=== PATIENT | female | born 1950 | race Caucasian/White ===

== ENCOUNTER → 2016-08-12 | Outpatient (CLI) | payer MEDICARE, OTHER ==
[~2016-08-12] MED LIST: ALDACTONE 25MG25 MG PO; ASPIR 8181 MG PO; CLARITIN10 MG PO; COMBIVENT0.074 GM/I INH; DITROPAN XL 5 MG5 MG PO; DOXEPIN HCL25 MG PO; FISH OIL 1,0001 EACH PO; GUAIFEN-CODEIN473 ML PO; GUAIFENESIN-CODE5 ML PO; INDERAL TAB 2020 MG PO; LASIX20 MG PO; LEVAQUIN500 MG PO; MIRALAX17 GM PO; NITROSTAT0.4 MG SL; NORFLEX 100 MG100 MG PO; POTASSIUM99 M1 PO; PROBIOTIC1 EAC1 PO; PROTONIX20 MG PO; SIMVASTATIN40 MG PO; SYMBICORT 16010.2 GM INH; VITAMIN D 40400 UNIT PO; VITAMIN D31000 UNIT PO; VITAMIN E1000 UNI1 PO; VOLTAREN 0.1%2.5 ML TOP; VOLTAREN100 GM TOP
[2016-08-12 14:14] LABS: HEMOGLOBIN 13.7 gm/dl (12.3-15.3); RED BLOOD COUNT 4.27 M/UL (4.00-5.10); WHITE BLOOD COUNT 7.1 K/UL (4.5-11.0)
[2016-08-12 14:33] LABS: BUN/CREATININE RATIO 14 (0-10)
== END ==
LOC: LAB 13:16
PROVIDERS: Emergency Medicine
DX: I12.9 Hypertensive chronic kidney disease with stage 1 through stage 4 chronic kidney disease, or unspecified chronic kidney disease (principal); N18.3 Chronic kidney disease, stage 3 (moderate); J20.8 Acute bronchitis due to other specified organisms; E78.2 Mixed hyperlipidemia; Z88.5 Allergy status to narcotic agent; Z88.8 Allergy status to other drugs, medicaments and biological substances; Z91.048 Other nonmedicinal substance allergy status
CPT/HCPCS: 36415; 71020; 80053; 85027

== ENCOUNTER → 2016-10-08 | Outpatient (CLI) | payer MEDICARE, OTHER | LOC: SLEEP 21:30 | DX: G47.33 Obstructive sleep apnea (adult) (pediatric) (principal) | CPT/HCPCS: 95810 ==

== ENCOUNTER → 2020-06-05 | Outpatient (CLI) | payer MEDICARE, OTHER ==
[~2020-06-05] MED LIST changes: +ALDACTONE25 MG PO; +AZELASTIN-FLUTI23 GM; +BREO ELLIPTA 21 EACH INH; +PREMARIN VAG CR30 GM EXT; +PROVENTIL HFA6.7 GM INH; +TIROSINT25 MCG PO; +VENTOLIN/PROVE0.5 ML INH
== END ==
LOC: RAD 12:53
DX: M51.16 Intervertebral disc disorders with radiculopathy, lumbar region (principal); M48.061 Spinal stenosis, lumbar region without neurogenic claudication; M25.78 Osteophyte, vertebrae; M89.8X8 Other specified disorders of bone, other site
CPT/HCPCS: 72110; 72170

== ENCOUNTER → 2020-09-25 | Outpatient (CLI) | payer MEDICARE, OTHER | LOC: LAB 14:07 | DX: R60.0 Localized edema (principal); Z88.1 Allergy status to other antibiotic agents; Z88.2 Allergy status to sulfonamides; Z88.8 Allergy status to other drugs, medicaments and biological substances | CPT/HCPCS: 85379 ==

== ENCOUNTER → 2021-03-26 | Outpatient (CLI) | payer MEDICARE, OTHER | LOC: RAD 13:23 | DX: M13.811 Other specified arthritis, right shoulder (principal); Z88.0 Allergy status to penicillin; Z88.2 Allergy status to sulfonamides; Z88.1 Allergy status to other antibiotic agents; Z88.8 Allergy status to other drugs, medicaments and biological substances; Z88.5 Allergy status to narcotic agent | CPT/HCPCS: 73030 ==

== ENCOUNTER → 2021-07-26 | Outpatient (CLI) | payer MEDICARE, OTHER ==
[2021-07-26 09:16] LABS: HEMOGLOBIN 13.8 gm/dl (12.3-15.3); RED BLOOD COUNT 4.34 M/UL (4.00-5.10); WHITE BLOOD COUNT 7.8 K/UL (4.5-11.0)
[2021-07-28 12:12] LABS: CHOLESTEROL, TOTAL 154 mg/dL (100-199); HDL-C 50 mg/dL (>39); HDL-P (TOTAL) 38.1 umol/L (>=30.5); LARGE HDL-P 5.3 umol/L (>=4.8); LARGE VLDL-P 7.9 nmol/L (<=2.7); LDL SIZE 20.5 nm (>20.5); LDL SIZE 20.5 nm (>=20.8); LDL-C 81 mg/dL (0-99); LDL-P 1069 nmol/L (<1000); LP-IR SCORE 70 (<=45); SMALL LDL-P 585 nmol/L (<=527); TRIGLYCERIDES 132 mg/dL (0-149); VLDL SIZE 57.8 nm (<=46.6)
== END ==
LOC: LAB 08:39
PROVIDERS: Emergency Medicine
DX: I10 Essential (primary) hypertension (principal); E78.2 Mixed hyperlipidemia; E53.9 Vitamin B deficiency, unspecified; E55.9 Vitamin D deficiency, unspecified; E03.8 Other specified hypothyroidism; Z88.0 Allergy status to penicillin; Z88.2 Allergy status to sulfonamides; Z88.5 Allergy status to narcotic agent; Z88.1 Allergy status to other antibiotic agents; Z88.8 Allergy status to other drugs, medicaments and biological substances
CPT/HCPCS: 36415; 80053; 80061; 83704; 84443; 85025

== ENCOUNTER 2021-09-28 11:15 | Emergency (ER) | payer MEDICARE, OTHER ==
[2021-09-28 13:18] LABS: HEMOGLOBIN 13.9 gm/dl (12.3-15.3); RED BLOOD COUNT 4.34 M/UL (4.00-5.10); WHITE BLOOD COUNT 8.5 K/UL (4.5-11.0)
[2021-09-28 13:52] LABS: BUN/CREATININE RATIO 18 (0-10)
== END 2021-09-28 17:29 | disposition home or self-care (01) ==
LOC: ER1 11:15
PROVIDERS: Physician Assistant
DX: R04.2 Hemoptysis (principal); Z88.0 Allergy status to penicillin; Z88.8 Allergy status to other drugs, medicaments and biological substances
CPT/HCPCS: 71045; 80053; 85025; 94664; 96365; 96375; 99285; J1200; J2930; Q9967

== ENCOUNTER → 2021-12-02 | Outpatient (CLI) | payer MEDICARE, OTHER ==
[2021-12-02 17:55] LABS: HEMOGLOBIN 13.9 gm/dl (12.3-15.3); RED BLOOD COUNT 4.3 M/UL (4.00-5.10); WHITE BLOOD COUNT 8.2 K/UL (4.5-11.0)
[2021-12-02 18:33] LABS: BUN/CREATININE RATIO 14 (0-10)
== END ==
LOC: LAB 17:23
PROVIDERS: Internal Medicine Pulmonary Disease
DX: J84.112 Idiopathic pulmonary fibrosis (principal)
CPT/HCPCS: 80053; 85025

== ENCOUNTER → 2021-12-02 | Outpatient (CLI) | payer MEDICARE, OTHER | LOC: HEART 5 15:21 | DX: J84.112 Idiopathic pulmonary fibrosis (principal) | CPT/HCPCS: 94060; 94729 ==

== ENCOUNTER → 2022-01-28 | Outpatient (CLI) | payer MEDICARE, OTHER ==
[2022-01-28 12:38] LABS: HEMOGLOBIN 14.5 gm/dl (12.3-15.3); RED BLOOD COUNT 4.54 M/UL (4.00-5.10); WHITE BLOOD COUNT 12.2 K/UL (4.5-11.0)
[2022-01-28 12:54] LABS: BUN/CREATININE RATIO 20 (0-10)
== END ==
LOC: LAB 11:48
PROVIDERS: Emergency Medicine
DX: J44.1 Chronic obstructive pulmonary disease with (acute) exacerbation (principal); J20.9 Acute bronchitis, unspecified
CPT/HCPCS: 36415; 71046; 80053; 83880; 85025